=== PATIENT | female | born 1990 | race Caucasian/White ===

== ENCOUNTER 2020-05-13 13:22 | Emergency (ER) | payer OTHER, SELFPAY ==
--- NOTE | ~2020-05-13 | XR_ITS ---
XR chest 2V DATE: 05/13/2020 13:57 INDICATION: Cough for 2 weeks TECHNIQUE: PA and lateral views COMPARISON: 09/22/2004 PA and lateral chest FINDINGS: Normal heart size. No hilar or mediastinal enlargement. No pulmonary infiltrate or consolid ation, pleural effusion or pulmonary vascular congestion or pneumothorax. IMPRESSION: No active cardiopulmonary disease Reviewed, dictated and finalized at location A.
[2020-05-13 13:33] VITALS: BP 117/67; PULSE 67; RESP 20; TEMP 36.6; O2SAT 98
--- NOTE | 2020-05-13 13:42 | ED.GENADULT ---
HPI - General Adult General Chief complaint: Upper Respiratory Infection Stated complaint: cough/mucus/mustafa/sinus issues Time Seen by Provider: 05/13/20 13:42 Source: patient and RN notes reviewed Mode of arrival: ambulatory Limitations: no limitations History of Present Illness HPI narrative: 30-year-old female presents with complains of dry cough, sore throat, and intermittent headache (not the worst of her life) for the past 14 days. Mucinex D and nasal spray without relief. Constant dry cough and intermittent chest congestion. No rhinorrhea. Intermittent nasal congestion. Sore throat. No high fevers, drooling, neck or throat swelling. No chest pain, wheezing, or shortness of breath. No exacerbation factors. LMP 04/20-. Rowena says she tested NEGATIVE for COVID on 05/08/20. The patient reports she have not been diagnosed with COVID-19. The patient reports she is not waiting for the results of a COVID-19 lab test. The patient reports she do not have fever, chills, or weakness. The patient reports she does have a worsening cough. Denies shortness of breath and chest pain. The patient reports she do not have any rhinorrhea, congestion, nausea, vomiting, abdominal pain, and diarrhea. Tolerating po intake well. Denies recent traveling. Denies concerns for COVID-19 or exposures been home with limited outdoor exposure except for essential household needs, work, and return home. At this time, patient is not suspected of having COVID-19. Some parts of this dictation were generated by voice recognition software and may contain typographical and/or grammatical inaccuracies. Related Data Allergies Allergy/AdvReac Type Severity Reaction Status Date / Time amoxicillin Allergy Unknown Rash Verified 02/13/20 14:00 azithromycin Allergy Unknown syncope Verified 02/13/20 14:00 Penicillins Allergy Unknown Skin Verified 02/13/20 14:00 Reaction Sulfa (Sulfonamide Allergy Unknown Skin Verified 02/13/20 14:00 Antibiotics) Reaction Review of Systems Review of Systems: Narrative: CONSTITUTIONAL: Denies fever, chills, sweats. EYES: Denies visual changes, redness, discharge. ENT: Denies rhinorrhea, otalgia. Complains of congestion, sore throat. CARDIOVASCULAR: Denies chest pain, palpitations, edema. RESPIRATORY: Denies dyspnea, wheezing. Complains of dry cough. GASTROINTESTINAL: Denies abdominal pain, nausea, vomiting, diarrhea. GENITOURINARY: Denies dysuria, hematuria, abnormal discharge. SKIN: Denies rash or itching. MUSCULOSKELETAL: Denies acute back pain. Complains of body aches. NEUROLOGIC: Denies numbness or focal weakness. Complains of intermittent headache. PSYCHIATRIC: Denies anxiety or depression. All systems reviewed & are unremarkable except as noted in HPI and below. [facility] Past Medical History Medical History (Updated 05/14/20 @ 00:00 by Severiano Haro) Anxiety Depression Surgical History Surgical History (Updated 05/13/20 @ 13:53 by CHU Garrett) No significant past surgical history Family History Family History Grandparent Diabetes mellitus Grandparent Pancreatic cancer Grandparent Breast cancer Mother Age: 55 Anxiety Social History Social History (Updated 05/13/20 @ 13:53 by CHU Garrett) Smoking status: Never smoker Tobacco type: cigarettes Second hand tobacco smoke exposure: No Alcohol intake: current Substance use: never Living arrangements: with family Occupation/Education: occupation Gender identity (if verbalized by the patient): Female Sexual Orientation (if Verbalized by the Patient): Straight or Heterosexual Comments At time of signature, agree with nurse past medical, surgical, social, and family history. There is no relevant family history pertinent to the presenting complaint. Exam Narrative: Exam Narrative: GENERAL: This is a well-nourished, well-developed pa
== END 2020-05-13 14:23 | disposition home or self-care (01) ==
PROVIDERS: Emergency Provider Nurse Practitioner Family; PCP Family Medicine
DX: J40 Bronchitis, not specified as acute or chronic (principal); F41.9 Anxiety disorder, unspecified; F32.9 Major depressive disorder, single episode, unspecified
CPT/HCPCS: 71046; 99213; G0463

== ENCOUNTER 2020-11-02 08:04 | Emergency (ER) | payer OTHER, SELFPAY ==
--- NOTE | ~2020-11-02 | US_ITS ---
EXAMINATION: US pelvic complete w TV DATE: 11/02/2020 10:44 INDICATION: Severe right pelvic pain radiating to the vagina TECHNIQUE: Multiple transabdominal and endovaginal sonographic images of the pelvis were obtained. COMPARISON: None. FINDINGS: The uterus measures 8.8 x 5.9 x 5.0 cm. The endometrial complex measures 5 mm in thickness. The righ t ovary measures 3.7 x 2.0 x 2.2 cm. The left ovary measures 3.0 x 2.8 x 1.[address] anechoic follicles in both ovaries. Vascular flow identified in both ovaries on color Doppler. In the right ovary there is a large 1.4 cm diameter isoechoic, centrally hypoechoic lesion with surroun ding vascular flow on color Doppler suggestive of a corpus luteum cyst. Very small amount of anechoic likely physiologic free fluid in the cul-de-sac.. IMPRESSION: 1. 1.4 cm isoechoic centrally hypoechoic lesion in the right ovary with surrounding vascular flow on color Doppler suggesting a corpus luteum cyst in very small amount of likely physiologic free fluid i n the cul-de-sac. Otherwise unremarkable pelvic ultrasound. Reviewed, dictated and finalized at location A. [facility]UL[facility] DISPATCHER IMPRESSION: 1. 1.4 cm isoechoic centrally hypoechoic lesion in the right ovary with surroun ding vascular flow on color Doppler suggesting a corpus luteum cyst in very sma ll amount of likely physiologic free fluid in the cul-de-sac. Otherwise unremar kable pelvic ultrasound.
[2020-11-02 08:00] VITALS: BP 93/58; PULSE 57; RESP 18; TEMP 36.4; O2SAT 100
[2020-11-02 08:41] LABS: Add Urine Microscopic? YES; Appearance Urine Turbid (Clear); Bilirubin Urine Negative (Negative); Blood Urine 3+ (Negative); Color Urine Yellow (Yellow); Glucose Urine UA Negative (Negative); Ketones Urine Negative (Negative); Leukocyte Esterase Ur 1+ LEU/UL (Negative); Mucus Urine Moderate /lpf; Nitrate Urine Negative (Negative); Protein Urine 3+ mg/dL (Negative); RBC Urine >75 /hpf (0-2); Specific Grav Ur 1.025 (1.001-1.035); Squamous Epithelial Cell Urine Few /hpf (Few); Urobilinogen Urine Negative mg/dL (<2.0); WBC Urine >75 /hpf
[2020-11-02 08:54] LABS: Basophils Percent Auto 0.4 % (0.2-1.2); Eosinophils Absolute Auto 0.1 K/mm3 (0-0.3); Eosinophils Percent Auto 1.2 % (0-4.4); Hematocrit 41.8 % (37.0-47.0); Hemoglobin 13.8 g/dL (12.0-15.0); Immature Granulocyte Absolute 0.03 K/mm3 (0.00-0.031); Immature Granulocyte Percent A 0.3 % (0-0.5); Lymphocytes Absolute Auto 1.42 K/mm3 (0.9-3.2); Lymphocytes Percent Auto 14.1 % (18.3-44.2); Mean Corpuscular Hemoglobin 29.6 pg (26-34); Mean Corpuscular Volume 89.7 fl (80-100); Mean Platelet Volume 10.8 fl (7.4-10.4); Monocytes Absolute Auto 0.8 K/mm3 (0.1-0.6); Monocytes Percent Auto 7.4 % (2.6-8.5); Neutrophils Absolute Auto 7.7 K/mm3 (1.3-6.7); Neutrophils Percent Auto 76.6 % (45.5-73.1); Platelet Count Result 223 k/mm3 (150-375); Red Blood Count 4.66 M/mm3 (4.2-5.4); White Blood Count 10.1 K/mm3 (4.5-10.0)
[2020-11-02 09:09] LABS: Alanine Aminotransferase 15 U/L (4-35); Albumin Level 4.1 g/dL (3.5-5.1); Alkaline Phosphatase 61 U/L (38-126); Anion Gap 3 mmol/L (8-16); Aspartate Amino Transferase 26 U/L (14-36); Bilirubin,Total 0.4 mg/dL (0.2-1.3); Blood Urea Nitrogen 20 mg/dL (7-17); Calcium 8.8 mg/dL (8.4-10.2); Carbon Dioxide 27 mmol/L (22-30); Chloride 105 mmol/L (98-107); Estimated CRCL calculation 72 ml/min; Estimated Glomerular Filt Rate > 60; Glucose 98 mg/dL (65-105); Lipase 192 U/L (23-300); Sodium 135 mmol/L (137-145)
[2020-11-02 09:39] VITALS: BP 114/66; PULSE 59; RESP 17; O2SAT 99
[2020-11-02] MEDS: LACTATED RINGERS 1,000 ML 999 ML IV CONT (10:42)
[2020-11-02 10:54] VITALS: BP 98/52; PULSE 52; RESP 19; O2SAT 100
[2020-11-02 11:28] VITALS: BP 110/73; PULSE 67; RESP 17; O2SAT 100
--- NOTE | 2020-11-02 12:04 | ED.ABDPAIN ---
HPI - Abdominal Pain General Chief Complaint: Abdominal Pain Stated Complaint: abd pain Time Seen by Provider: 11/02/20 08:37 Source: patient Mode of arrival: EMS Limitations: no limitations History of Present Illness HPI narrative: Patient is a 30 year old female who presents for evaluation of pelvic pain. She started her menstrual cycle yesterday with mild spotting. This morning she reports she started having severe pelvic pain that radiates to vagina. She reports nausea, vomiting and diarrhea. While she was having diarrhea she developed worsening pain. She reports she frequently have IBS symptoms with her period. She tried to take motrin but she started vomiting. She reports feeling faint. She has not fever or chills. She states she called EMS because she needed pain relief. EMS gave her morphine and zofran , so her symptoms have resolved. She denies nausea. She request an ultrasound to look for a cyst. Related Data Allergies Allergy/AdvReac Type Severity Reaction Status Date / Time amoxicillin Allergy Unknown Rash Verified 11/02/20 08:08 azithromycin Allergy Unknown syncope Verified 11/02/20 08:08 Penicillins Allergy Unknown Skin Verified 11/02/20 08:08 Reaction Sulfa (Sulfonamide Allergy Unknown Skin Verified 11/02/20 08:08 Antibiotics) Reaction Review of Systems Review of Systems: All systems reviewed & are unremarkable except as noted in HPI and below PMFSH Past Medical History Medical History (Updated 11/02/20 @ 13:00 by Marlee Abdalla MD) Anxiety Depression Surgical History Surgical History (Updated 05/13/20 @ 13:53 by CHU Garrett) No significant past surgical history Family History Family History Grandparent Diabetes mellitus Grandparent Pancreatic cancer Grandparent Breast cancer Mother Age: 56 Anxiety Social History Social History (Updated 05/13/20 @ 13:53 by CHU Garrett) Smoking status: Never smoker Tobacco type: cigarettes Second hand tobacco smoke exposure: No Alcohol intake: current Substance use: never Gender identity (if verbalized by the patient): Female Exam Const: General: healthy appearing, no acute distress and alert Orientation/consciousness: patient oriented x3 HENMT: Head: normocephalic and atraumatic Face and sinus: face symmetric Mouth: Yes Normal oral and palatal mucosa present, Yes lip normal, Yes oropharynx normal and Yes moist mucous membranes Eyes: EOM: EOMs intact bilaterally Resp: Effort & Inspection: normal respiratory effort Auscultation: clear to auscultation bilaterally Cardio: Rate: regular rate Rhythm: regular rhythm Heart sounds: no murmurs GI: GI Palp: Yes Soft to palpation, No Tenderness to palpation present (GI), No Guarding due to palpation present (GI) and No Rigid due to palpation Auscultation: normal bowel sounds Skin: General skin exam: normal color Rashes: no rashes Neuro: General: patient oriented x3 and moves all extremities Course Reevaluation(s) Reevaluation #1: Patient reports she feels better. She has no abdominal tenderness. This appears to be unlikely appendicitis with no abdominal tenderness , no fever, no leukocytosis. Date: 11/02/20 Time: 12:48 Vital Signs Vital signs: Vital Signs Temperature 97.6 F 11/02/20 08:00 Pulse Rate 57 L 11/02/20 08:00 Respiratory Rate 18 11/02/20 08:00 Blood Pressure 93/58 L 11/02/20 08:00 Pulse Oximetry 100 11/02/20 08:00 Temperature 97.6 F 11/02/20 08:00 Pulse Rate 64 11/02/20 12:25 Respiratory Rate 18 11/02/20 12:25 Blood Pressure 103/66 11/02/20 12:25 Pulse Oximetry 97 11/02/20 12:25 MDM - Abdominal Pain Lab Data Attestation: I reviewed the patient's lab results. Result diagrams: 11/02/20 08:43 11/02/20 08:43 Labs: Lab Results 11/02/20 11/02/20 11/02/20 Range/Units 08:25 08:43 08:43 WBC 10.1
[2020-11-02 12:25] VITALS: BP 103/66; PULSE 64; RESP 18; O2SAT 97
== END 2020-11-02 13:12 | disposition home or self-care (01) ==
PROVIDERS: Emergency Provider General Practice; PCP Family Medicine
DX: R11.2 Nausea with vomiting, unspecified (principal); N92.0 Excessive and frequent menstruation with regular cycle; N83.11 Corpus luteum cyst of right ovary
CPT/HCPCS: 36415; 76830; 76856; 80053; 81001; 81025; 83690; 85025; 87086; 87088; 96360; 99284; J7120

== ENCOUNTER 2021-05-19 10:29 | Emergency (ER) | payer BC, OTHER, SELFPAY ==
--- NOTE | 2021-05-19 10:32 | ED.URI ---
HPI - URI/Sore Throat General Chief Complaint: Upper Respiratory Infection Stated Complaint: cough/runny nose/sore throat/ear pain/mustafa/congestio Time Seen by Provider: 05/19/21 10:45 Source: patient and RN notes reviewed Mode of arrival: ambulatory Limitations: no limitations History of Present Illness HPI Narrative: 31-year-old male presents with concern for 4-day history of cough, nasal congestion, nasal drainage, headache, ear pain. Reports she was tested for Covid on Tuesday, when she had had 1 day of symptoms. Reports the rapid test was negative. Reports she had a negative PCR through her work on Tuesday as well. Reports she has been taking Delsym, albuterol, Mucinex with little relief. Reports cough keeps her awake at night. She denies fever, chills, sweats. Reports body aches. She denies any known sick exposure. Reports she has been using her albuterol inhaler every 4 hours, she last used it this morning. She denies shortness of breath, nausea, vomiting, diarrhea. MD elicited complaint: cough Related Data Allergies Allergy/AdvReac Type Severity Reaction Status Date / Time amoxicillin Allergy Unknown Rash Verified 11/02/20 08:08 azithromycin Allergy Unknown syncope Verified 11/02/20 08:08 Penicillins Allergy Unknown Skin Verified 11/02/20 08:08 Reaction Sulfa (Sulfonamide Allergy Unknown Skin Verified 11/02/20 08:08 Antibiotics) Reaction Review of Systems Review of Systems: CONSTITUTIONAL: Reports malaise. Denies chills, sweats, or fever. EYES: Denies visual changes, redness, or discharge. ENT: Reports rhinorrhea, congestion, sinus pain, otalgia. Denies sore throat. CARDIOVASCULAR: Denies chest pain, palpitations, or edema. RESPIRATORY: Reports cough, wheezing. Denies dyspnea. GASTROINTESTINAL: Denies abdominal pain, nausea, vomiting, diarrhea SKIN: Denies rash or itching. MUSCULOSKELETAL: Reports myalgia. NEUROLOGIC: Reports headache. All systems reviewed & are unremarkable except as noted in HPI and below PMFSH Past Medical History Medical History (Updated 05/19/21 @ 10:51 by Abril Eugene NP) Anxiety Depression Surgical History Surgical History (Updated 05/13/20 @ 13:53 by CHU Garrett) No significant past surgical history Family History Family History Grandparent Diabetes mellitus Grandparent Pancreatic cancer Grandparent Breast cancer Mother Age: 56 Anxiety Social History Social History (Updated 05/13/20 @ 13:53 by CHU Garrett) Smoking status: Never smoker Tobacco type: cigarettes Second hand tobacco smoke exposure: No Alcohol intake: current Substance use: never Gender identity (if verbalized by the patient): Female Comments At time of signature, agree with nursing past medical, surgical, social and family history. There is no relevant family history pertinent to the presenting complaint Exam Narrative: GENERAL: Well-appearing, well-nourished, and in no acute distress. HEAD: Normocephalic EYES: PERRLA, conjunctivae clear ENT: Nares clear, turbinates edematous and erythematous, clear discharge. Mucous membranes moist. TM pearly perry with sharp light reflex bilaterally; no tragal tenderness. Oropharynx not erythematous without lesions. Tonsils not enlarged and without exudate, no drooling, no hoarseness, no trismus, uvula midline. NECK: Supple. No lymphadenopathy CHEST: Clear to auscultation, breath sounds equal. No wheezing, rhonchi, rales, or stridor. No respiratory distress, speaks in full sentences. Cough noted HEART: Regular rate and rhythm. No murmur heard. SKIN: Warm, dry, no rash. NEURO: Alert and oriented x3. PSYCH: Normal mood and affect Course Course Emergency Course: Patient is aware of diagnosis, understands and agrees to treatment plan. Anticipatory guidance given. Patient agrees to follow-up as directed and is aware of reasons to seek care at the emergency department
[2021-05-19 10:37] VITALS: BP 110/76; PULSE 81; RESP 12; TEMP 36.6; O2SAT 99
== END 2021-05-19 11:02 | disposition home or self-care (01) ==
PROVIDERS: Emergency Provider Nurse Practitioner; PCP Family Medicine
DX: J06.9 Acute upper respiratory infection, unspecified (principal)
CPT/HCPCS: 99213; G0463

== ENCOUNTER 2022-07-20 09:28 | Outpatient (CLI) | payer BC, SELFPAY ==
[2022-07-20 19:59] LABS: Basophils Absolute Auto 0.1 K/mm3 (0.0-0.1); Basophils Percent Auto 1.2 % (0.2-1.2); Eosinophils Absolute Auto 0.2 K/mm3 (0-0.3); Eosinophils Percent Auto 2.2 % (0-4.4); Hematocrit 44.5 % (37.0-47.0); Hemoglobin 14.2 g/dL (12.0-15.0); Immature Granulocyte Absolute 0.02 K/mm3 (0.00-0.031); Immature Granulocyte Percent A 0.3 % (0-0.5); Lymphocytes Absolute Auto 1.75 K/mm3 (0.9-3.2); Lymphocytes Percent Auto 25.4 % (18.3-44.2); Mean Corpuscular HGB Conc 31.9 g/dl (32-36); Mean Corpuscular Hemoglobin 29.8 pg (26-34); Mean Corpuscular Volume 93.5 fl (80-100); Mean Platelet Volume 11.1 fl (7.4-10.4); Monocytes Absolute Auto 0.6 K/mm3 (0.1-0.6); Monocytes Percent Auto 8.8 % (2.6-8.5); Neutrophils Absolute Auto 4.3 K/mm3 (1.3-6.7); Neutrophils Percent Auto 62.1 % (45.5-73.1); Platelet Count Result 265 k/mm3 (150-375); Red Blood Count 4.76 M/mm3 (4.2-5.4); Red Cell Distribution Width 12.1 % (11.5-14.5); White Blood Count 6.9 K/mm3 (4.5-10.0)
[2022-07-20 20:27] LABS: Alanine Aminotransferase 18 U/L (6-35); Albumin Level 4.6 g/dL (3.5-5.1); Alkaline Phosphatase 64 U/L (38-126); Anion Gap 13 mmol/L (8-16); Aspartate Amino Transferase 23 U/L (14-36); Bilirubin,Total 0.5 mg/dL (0.2-1.3); Blood Urea Nitrogen 16 mg/dL (7-17); Calcium 9.1 mg/dL (8.4-10.2); Carbon Dioxide 22 mmol/L (22-30); Chloride 105 mmol/L (98-107); Estimated Glomerular Filt Rate > 60; Glucose 79 mg/dL (65-110); Potassium 3.9 mmol/L (3.4-5.0); Sodium 140 mmol/L (137-145)
== END 2022-07-20 09:29 | disposition home or self-care (01) ==
LOC: ANHGOSHLAB 09:30
PROVIDERS: PCP Family Medicine; Visit Provider Physician Assistant
DX: R55 Syncope and collapse (principal); R00.2 Palpitations
CPT/HCPCS: 36415; 80053; 84443; 85025

== ENCOUNTER 2022-09-19 16:04 | Emergency (ER) | payer BC, SELFPAY ==
[2022-09-19 16:12] VITALS: BP 123/78; PULSE 80; RESP 16; TEMP 36.4; O2SAT 100
--- NOTE | 2022-09-19 16:42 | ED.URI ---
HPI - URI/Sore Throat General Chief Complaint: Upper Respiratory Infection Stated Complaint: SORE THROAT/NAUSEA/VOMITING/DIARRHEA Time Seen by Provider: 09/19/22 16:15 Source: patient Mode of arrival: ambulatory Limitations: no limitations History of Present Illness HPI Narrative: Rowena is a 32-year-old female patient presenting to the clinic today with complaints sore throat, nausea, vomiting, diarrhea, cough, and nasal congestion x 3 days. She denies any known fever or chills. She reports that her daughter was positive for strep last week. MD elicited complaint: sore throat and nasal congestion Related Data Home Medications Medication Instructions Recorded Confirmed sertraline 50 mg tablet mg 09/19/22 Allergies Allergy/AdvReac Type Severity Reaction Status Date / Time amoxicillin Allergy Unknown Rash Verified 09/19/22 16:11 azithromycin Allergy Unknown syncope Verified 09/19/22 16:11 Penicillins Allergy Unknown Skin Verified 09/19/22 16:11 Reaction Sulfa (Sulfonamide Allergy Unknown Skin Verified 09/19/22 16:11 Antibiotics) Reaction doxycycline AdvReac Mild Nausea Uncoded 09/19/22 16:11 Review of Systems Review of Systems: Pertinent positives per HPI. Patient denies any fever, chills, rash, headache, visual changes, dizziness, shortness of breath, chest pain, palpitations, nausea, vomiting, diarrhea, constipation, abdominal pain, or any urinary issues. [facility] Past Medical History Medical History Anxiety Depression Surgical History Surgical History No significant past surgical history Family History Family History Grandparent Diabetes mellitus Grandparent Pancreatic cancer Grandparent Breast cancer Mother Age: 58 Anxiety Social History Social History Smoking status: Never smoker Tobacco type: cigarettes Second hand tobacco smoke exposure: No Alcohol intake: current Substance use: never Gender identity (if verbalized by the patient): Female Sexual Orientation (if Verbalized by the Patient): Straight or Heterosexual Comments At the time of my signature, I reviewed and agree with the nursing past medical, surgical, social, and family history. There is no relevant family history pertinent to the patient complaint. Exam Narrative: General: Well-developed, well nourished, in no apparent distress Head: Normocephalic, atraumatic Eyes: Pupils equally round and reactive to light bilaterally, EOM intact, sclera and conjunctive clear, no discharge, lids normal Ears: TMs intact and clear, ear canals clear, no drainage, grossly hearing normal. Nose: Nares patent, no discharge, no inflammation, no sinus tenderness. Mouth: Oral pharynx without lesions or masses, good dentition, MMM. Oropharynx red with mild tonsillar enlargement Neck: Supple, trachea midline, mild enlargement of anterior cervical nodes, no thyroid masses or goiter palpable. Cardio: Regular rate and rhythm, s1 and s2 normal, no murmur appreciated. Resp: Clear to auscultation bilaterally, no rhonchi, rales, wheezing or rubs Course Course Emergency Course: Portions of this record may have been created with voice recognition software. Level of Care: Express Care Visit Vital Signs Vital signs: Vital Signs Temperature 36.4 C L 09/19/22 16:12 Pulse Rate 80 09/19/22 16:12 Respiratory Rate 16 09/19/22 16:12 Blood Pressure 123/78 09/19/22 16:12 Pulse Oximetry 100 09/19/22 16:12 Temperature 36.4 C L 09/19/22 16:12 Pulse Rate 80 09/19/22 16:12 Respiratory Rate 16 09/19/22 16:12 Blood Pressure 123/78 09/19/22 16:12 Pulse Oximetry 100 09/19/22 16:12 Vital signs reviewed MDM - URI/Sore Throat MDM Narrative Medical decision santa
== END 2022-09-19 16:55 | disposition home or self-care (01) ==
PROVIDERS: Emergency Provider Nurse Practitioner Family; PCP Family Medicine
DX: J06.9 Acute upper respiratory infection, unspecified (principal); J02.9 Acute pharyngitis, unspecified; B34.9 Viral infection, unspecified; Z20.822 Contact with and (suspected) exposure to COVID-19; F41.9 Anxiety disorder, unspecified; F32.A Depression, unspecified
CPT/HCPCS: 87081; 87426; 87804; 99213; C9803; G0463

== ENCOUNTER 2022-11-21 09:32 | Emergency (ER) | payer BC, SELFPAY ==
[2022-11-21 10:13] VITALS: BP 113/68; PULSE 86; RESP 15; TEMP 36.7; O2SAT 100
[2022-11-21 11:18] VITALS: BP 136/89; PULSE 100; RESP 15; O2SAT 100
[2022-11-21 11:31] VITALS: BP 119/82; PULSE 79; RESP 16; O2SAT 98
--- NOTE | 2022-11-21 11:50 | ED.HA ---
HPI - Headache General Chief Complaint: Headache Stated Complaint: headache, N/V Time Seen by Provider: 11/21/22 11:34 History of Present Illness HPI Narrative: Patient is a 32-year-old female who presents ER with headache. Reports has been feeling fatigued for the last 2 days. This morning she started having mild headache and then it intensified. Posterior neck. This is high as 10/10 and 7/10 improved since coming to the ER. Unsure if she has photophobia. Denies fevers or chills. She did have some sweats earlier with the pain. She has a [id number] who was recently hospitalized for adenovirus. Denies productive cough chest pain. No urinary frequency urgency or dysuria. Related Data Home Medications Medication Instructions Recorded Confirmed sertraline 50 mg tablet 50 mg PO DAILY 09/19/22 10/11/22 Allergies Allergy/AdvReac Type Severity Reaction Status Date / Time amoxicillin Allergy Unknown Rash Verified 11/21/22 11:19 azithromycin Allergy Unknown syncope Verified 11/21/22 11:19 Penicillins Allergy Unknown Skin Verified 11/21/22 11:19 Reaction Sulfa (Sulfonamide Allergy Unknown Skin Verified 11/21/22 11:19 Antibiotics) Reaction doxycycline AdvReac Mild Nausea Uncoded 11/21/22 11:19 Review of Systems Review of Systems: All systems reviewed & are unremarkable except as noted in HPI and below Constitutional: Constitutional: Denies chills, Reports fatigue and Denies fever(s) ENT: Denies nasal congestion and Denies sore throat Respiratory: Respiratory: Denies cough and Denies dyspnea Neurologic: Denies syncope, Reports headache(s), Denies focal weakness and Denies numbness PMFSH Past Medical History Medical History (Updated 11/21/22 @ 13:17 by Axel Valdivia MD) Anxiety Depression Surgical History Surgical History No significant past surgical history Family History Family History Grandparent Diabetes mellitus Grandparent Pancreatic cancer Grandparent Breast cancer Mother Age: 58 Anxiety Social History Social History Smoking status: Never smoker Tobacco type: cigarettes Second hand tobacco smoke exposure: No Alcohol intake: current Substance use: never Living arrangements: with family Occupation/Education: occupation Gender identity (if verbalized by the patient): Female Sexual Orientation (if Verbalized by the Patient): Straight or Heterosexual Exam Narrative: GENERAL: Well-appearing, well-nourished, and in no acute distress. HEAD: Normocephalic, atraumatic. ENT: Mucous membranes moist. NECK: Supple. Full range of motion without meningismus. CHEST: Clear to auscultation. No respiratory distress. HEART: Regular rate and rhythm. Normal peripheral pulses. ABDOMEN: Soft, nontender, nondistended. EXTREMITIES: Normal range of motion. No edema. NEURO: Alert and oriented x3. PSYCH: Normal mood and affect. Course Course Emergency Course: Patient's headache resolved with Reglan/Benadryl/Toradol. She has been hydrated. Discharge home. Vital Signs Vital signs: Vital Signs Temperature 98.0 F 11/21/22 10:13 Pulse Rate 86 11/21/22 10:13 Respiratory Rate 15 11/21/22 10:13 Blood Pressure 113/68 11/21/22 10:13 Pulse Oximetry 100 11/21/22 10:13 Oxygen Delivery Room Air 11/21/22 10:13 Temperature 98.0 F 11/21/22 10:13 Pulse Rate 79 11/21/22 11:31 Respiratory Rate 16 11/21/22 11:31 Blood Pressure 119/82 11/21/22 11:31 Pulse Oximetry 98 11/21/22 11:31 Oxygen Delivery Room Air 11/21/22 10:13 MDM - Headache Lab Data 11/21/22 11:56 11/21/22 11:56 Labs: Lab Results 11/21/22 11/21/22 11/21/22 Range/Units 11:56 11:56 11:56 WBC 8.9 (4.5-10.0) K/mm3 RBC 4.68 (4.2-5.4) M/mm3 Hgb 13.9 (12.0-15.0)
[2022-11-21 12:00] LABS: Basophils Absolute Auto 0.1 K/mm3 (0.0-0.1); Basophils Percent Auto 0.7 % (0.2-1.2); Eosinophils Percent Auto 0.2 % (0-4.4); Hematocrit 42.3 % (37.0-47.0); Hemoglobin 13.9 g/dL (12.0-15.0); Immature Granulocyte Absolute 0.03 K/mm3 (0.00-0.031); Immature Granulocyte Percent A 0.3 % (0-0.5); Lymphocytes Absolute Auto 0.92 K/mm3 (0.9-3.2); Lymphocytes Percent Auto 10.3 % (18.3-44.2); Mean Corpuscular HGB Conc 32.9 g/dl (32-36); Mean Corpuscular Hemoglobin 29.7 pg (26-34); Mean Corpuscular Volume 90.4 fl (80-100); Mean Platelet Volume 10.8 fl (7.4-10.4); Monocytes Absolute Auto 0.5 K/mm3 (0.1-0.6); Monocytes Percent Auto 5.6 % (2.6-8.5); Neutrophils Absolute Auto 7.4 K/mm3 (1.3-6.7); Neutrophils Percent Auto 82.9 % (45.5-73.1); Platelet Count Result 244 k/mm3 (150-375); Red Blood Count 4.68 M/mm3 (4.2-5.4); White Blood Count 8.9 K/mm3 (4.5-10.0)
[2022-11-21 12:10] LABS: Anion Gap 4 mmol/L (8-16); Blood Urea Nitrogen 13 mg/dL (7-17); Calcium 8.8 mg/dL (8.4-10.2); Carbon Dioxide 29 mmol/L (22-30); Chloride 105 mmol/L (98-107); Estimated CRCL calculation 87 ml/min; Estimated Glomerular Filt Rate > 60; Glucose 113 mg/dL (65-110); Potassium 4.1 mmol/L (3.4-5.0); Sodium 138 mmol/L (137-145)
[2022-11-21] MEDS: SODIUM CHLORIDE 0.9% IV 1,000 ML 999 ML IV CONT (12:30)
[2022-11-21] MEDS: diphenhydrAMINE HCl INJ 50 MG/ML VIAL 25 MG IV PUSH (12:30)
[2022-11-21] MEDS: METOCLOPRAMIDE HCL INJ 10 MG/2 ML VIAL IV PUSH (12:31)
[2022-11-21] MEDS: KETOROLAC 30 MG/ML VIAL (*BKC) IV PUSH (12:31)
[2022-11-21 12:36] LABS: Influenza A QL RT-PCR Negative (Negative); Influenza B QL RT-PCR Negative (Negative); SARS-CoV-2 RNA PCR Negative
[2022-11-21 13:29] VITALS: BP 96/52; PULSE 80; RESP 16; O2SAT 98
== END 2022-11-21 13:30 | disposition home or self-care (01) ==
PROVIDERS: Emergency Provider Emergency Medicine; PCP Family Medicine
DX: R51.9 Headache, unspecified (principal); Z20.822 Contact with and (suspected) exposure to COVID-19; F41.9 Anxiety disorder, unspecified; F32.A Depression, unspecified
CPT/HCPCS: 36415; 80048; 85025; 87636; 96361; 96374; 96375; 99284; J1200; J1885; J2765; J7030

== ENCOUNTER 2024-04-27 18:06 | Emergency (ER) | payer BC, SELFPAY ==
[2024-04-27 18:42] VITALS: BP 123/74; PULSE 70; RESP 16; TEMP 36.6; O2SAT 100
--- NOTE | 2024-04-27 18:59 | ED.SKABFB ---
HPI - Skin/Abscess/Foreign Bdy General Chief complaint: Skin/Abscess/Foreign Body Stated complaint: Bacterial Infection in Nose Time Seen by Provider: 04/27/24 18:59 Source: patient, RN notes reviewed and old records reviewed Mode of arrival: ambulatory Limitations: no limitations History of Present Illness HPI narrative: Patient presents with complaints of crusty sores to bilateral nostrils for approximately 4 days. She reports honey-colored crust. Denies any injury or trauma Related Data Allergies Allergy/AdvReac Type Severity Reaction Status Date / Time azithromycin AdvReac Intermediate syncope Verified 04/27/24 18:42 amoxicillin AdvReac Mild Rash Verified 04/27/24 18:42 Penicillins AdvReac Mild Skin Verified 04/27/24 18:42 Reaction Sulfa (Sulfonamide AdvReac Mild Skin Verified 04/27/24 18:42 Antibiotics) Reaction doxycycline AdvReac Intermediate Nausea and Uncoded 04/27/24 18:42 Vomiting Review of Systems Review of Systems: All systems reviewed & are unremarkable except as noted in HPI and below Constitutional: Constitutional: Reports no additional constitutional complaints ENT: Reports system reviewed and no additional complaints, except as documented Cardiovascular: Cardiovascular: Reports no additional cardiovascular complaints Respiratory: Respiratory: Reports no additional respiratory complaints Gastrointestinal: Gastrointestinal: Reports no additional gastrointestinal complaints Integumentary/Breasts: Skin/Breast: Reports system reviewed and no additional complaints, except as docu and Reports as per [facility]PI [facility] Past Medical History Medical History Anxiety Depression Surgical History Surgical History No significant past surgical history Family History Family History Grandparent Diabetes mellitus Grandparent Pancreatic cancer Grandparent Breast cancer Mother Age: 59 Anxiety Social History Social History Smoking status: Never smoker Tobacco type: cigarettes Second hand tobacco smoke exposure: No Alcohol intake: current Substance use: never Lack of Transportation: No Lack of Food: Never True Current Housing: I Have Housing Concerned About Future Housing: No Difficulty Paying Gas/Electric Bills: No Difficulty Paying for Meds: No Currently Unemployed: No Education: Master's Degree or Higher Difficulty w/ Childcare or Family Care: No Living arrangements: with family Occupation/Education: occupation Gender identity (if verbalized by the patient): Female Sexual Orientation (if Verbalized by the Patient): Straight or Heterosexual Comments At the time of my signature, I reviewed and agree with the nursing past medical, surgical, social, and family history. There is no relevant family history pertinent to the patient complaint. Exam Const: General: cooperative, no acute distress, alert and awake Orientation/consciousness: oriented to person, oriented to place and oriented to time HENMT: Head: normal to inspection Resp: Effort & Inspection: normal respiratory effort and able to speak in complete sentences Auscultation: clear to auscultation bilaterally, no crackles, no rales, no rhonchi and no wheezes Cardio: Palpation: normal PMI Rate: regular rate Rhythm: regular rhythm Heart sounds: S1 normal heart sound present and S2 normal heart sound present Skin: Lesions: lesion noted (Honey crusted lesions noted surrounding both nostrils, spreading outward) Neuro: General: oriented to person, oriented to place and oriented to time Cranial nerves: Yes CN's II-XII intact bilaterally Psych: Appearance: grossly normal Thought process: Normal thought process present Insight: Good insight present (Psych) Judgement: Good judgement pr
== END 2024-04-27 19:09 | disposition home or self-care (01) ==
PROVIDERS: Emergency Provider Nurse Practitioner Family; PCP Family Medicine
DX: L01.00 Impetigo, unspecified (principal); F41.9 Anxiety disorder, unspecified; F32.A Depression, unspecified
CPT/HCPCS: 99213; G0463

== ENCOUNTER 2025-01-02 08:01 | Outpatient (CLI) | payer BC, SELFPAY ==
--- OUTSIDE RECORDS SUMMARY | 2025-01-02 08:07 | XMS_ITS ---
Author Organization [facility] [employer] [facility] Address [facility] 162 [facility] [address] [place] [address] Care Team Providers Care Optical Designer Name Role Phone Aydin Lieberman Unavailable [phone] Anastacia Archer Unavailable [phone] Social History Sex Assigned At : Social History Observation Description Sex Assigned At Female Encounters Encounter Location Date Provider Diagnosis [facility] [employer] [place] [id number] [facility] 162 [facility] [address] [place] [address] 07/26/2024 Anastacia Eddy Plan Of Treatment No Information Progress Notes * BABATUNDE KEEN KDOB: 2 (34 yo F)Acc No.[id number]:07/26/2024 Patient: BABATUNDE KHAN Provider: Cynthia EDDY LCSW :1990 A ge:34 Y S ex:Female Date:07/26/2024 Address:[address] [facility] Data: * Chief Complaints: * Assessment: Plan: * Treatment: * Procedure Codes: N STHR NO SHOW THERAPY * Billing Information: * Visit Code: * Procedure Codes: NSTHR NO SHOW THERAPY. * Electronic signature of Ellen dEdy LCSW on 01/02/2025 at 08:07 AM CDT Sign off status: Pending Signatures: No Ad Hoc Signature Added * Provider: Cynthia EDDY LCSW Date: 1 Generated for Printi ng/Faxing/eTransmitting on: 0 01/02/2025 08:07 AM CDT
--- OUTSIDE RECORDS SUMMARY | 2025-01-02 08:07 | XMS_ITS ---
Author Organization [facility] [employer] [facility] Address [facility] 162 [facility] [address] [place] [address] Care Team Providers Care Gas Furnace Installer Name Role Phone Aydin Lieberman Unavailable [phone] Anastacia Archer Unavailable [phone] Social History Sex Assigned At : Social History Observation Description Sex Assigned At Female Encounters Encounter Location Date Provider Diagnosis [facility] [employer] [place] [address] [facility] 162 [facility] [address] [place] [address] 08/24/2024 Anastacia Eddy Plan Of Treatment No Information Progress Notes * BABATUNDE KEEN KDOB: 2 (34 yo F)Acc No.[id number]:08/24/2024 Patient: BABATUNDE KAHN Provider: Cynthia EDDY LCSW :1990 A ge:34 Y S ex:Female Date:08/24/2024 Address:[address] [facility] Data: * Chief Complaints: * Assessment: Plan: * Treatment: * Procedure Codes: N STHR NO SHOW THERAPY * Billing Information: * Visit Code: * Procedure Codes: NSTHR NO SHOW THERAPY. * Electronic signature of Ellen Eddy LCSW on 01/02/2025 at 08:07 AM CDT Sign off status: Pending Signatures: No Ad Hoc Signature Added * Provider: Cynthia EDDY LCSW Date: 1 10/24/2023 Generated for Printi ng/Faxing/eTransmitting on: 0 01/02/2025 08:07 AM CDT
--- OUTSIDE RECORDS SUMMARY | 2025-01-02 08:07 | XMS_ITS | Clinical Summary ---
Author Organization [employer] [address] [employer] [address] [place] [address] Phone Care Team Providers Care Svp Programmatic Tv Name Role Phone Unavailable Primary Care Provider Unavailabl e Allergies Active Allergy Reactions Criticality Noted Date Comments Amoxicillin Rash Medium 04/18/2018 Penicillins Hives High 02/24/2021 Sulfa (Sulfonamide Antibiotics) Rash Medium 04/02 Medications escitalopram oxalate (LEXAPRO) 20 mg tablet Take 20 mg by mouth daily. 09/09/2020 Active sertraline (ZOLOFT) 50 mg tablet Take 1 Tablet (50 mg) by mouth daily. 90 Tablet 3 07/07/2022 Active Active Problems No known active problems Family History Medical History Relation Name Comments Diabetes Paternal Uncle Relation Name Status Comments Paternal Uncle Other Diabetes Social History Tobacco Use Types Packs/Day Years Used Date Smoking Tobacco: Never Smokeless Tobacco: Never Tobacco Cessation:Counseling Given: Not Answered Alcohol Use Standard Drinks/Week Comments Yes 0 (1 standard drink = 0.6 oz pur e alcohol) rare Comments No Sex and Gender Information Value Date Recorded Sex Assigned at Not on file Legal Sex Female 2:32 PM UPPER CUTTER OUT Gender Identity Not on file Sexual Orientation Not on file Last Filed Vital Signs Vital Sign Reading Time Taken Comments Blood Pressure 110/78 07/30/2022 2:44 PM CDT Pulse - - Temperature - - Respiratory Rate - - Oxygen Saturation - - Inhaled Oxygen Concentration - - Weight 77.1 kg (170 lb) 07/30/2022 2:44 PM CDT Height 157.5 cm (5' 2 ) 07/07/2022 1:29 PM CDT Body Mass Index 31.09 07/07/2022 1:29 PM CDT Plan of Treatment Health Maintenance Due Date Last Done Comments DTAP/TDAP/TD VACCINES (1 - Tdap) 2011 HEPATITIS B VACCINES (1 of 3 - 19+ 3-dose series) 2011 HPV/Cotest (30-65) 2022 INFLUENZA VACCINE (#1) 2024 10/01/2021 COVID-19 Vaccine (3 - 2023-2 5 season) 2024 10/22/2021, 10/01/2021 CERVICAL CANCER SCREENING 07/07/2025 PAP SMEAR 07/07/2025 07/07/2022, 02/24/2021 PAP SMEAR 07/07/2025 07/07/2022, 02/24/2021 HPV VACCINES Aged Out No longer eligi ble based on patient's age to complete this topic PNEUMOCOCCAL VACCINE 0-49 YEARS Aged Out No longer eligible b ased on patient's age to complete this topic Procedures Procedure Name Priority Date/Time Associated Diagnosis Comments CERV/VAG CYTO AGE BASED SCREEN PAP Routine 07/07/2022 3:12 PM CDT Screening for cervical cancer from Last 3 Months or Most Recently Relevant to Health Maintenance Results * (ABNORMAL) CERV/VAG CYTO AGE BASED SCREEN PAP (07/07/2022 3:12 PM CDT) COMMENT (PAP): [facility] [place] Comment: This order for age-based cervical cancer and STI screening follows ACOG guidelines(PB 168, 140, JNB432). See individual assays for performing site location. CLINICAL INFORMATION [facility] [place] Comment:None given LAST MENSTRUAL PERIOD [facility] [place] Comment:NONE GIVEN PREV PAP: [facility] [place] Comment:NONE GIVEN PREV BX: [facility] [place] Comment:NONE GIVEN SOURCE [facility] [place] Comment:Endocervix ADEQUACY: [facility] [place] Comment: Satisfactory for evaluation. Endocervical/transformation zone component present. Age and/or menstrual status not provided GENERAL CATEGORIZATION: (A) [facility] [place] Comment:EPITHELIAL CELL ABNO RMALITY PAP INTERP (A) [facility] [place] Comment: Atypical Squamous Cells of Undetermined Significance (ASC-US) COMMENT (PAP TEST) [facility] [place] Comment: This Pap test has been evaluated with computer assisted technology. Suggest clinical correlation and follow-up as clinically appropriate MANAGER TRANSPORT: [facility] [place] Comment: BKA, CT(ASCP) CT screening location: [place] [address] [place] [address] PATHOLOGIST [facility] Comment: Erasmo Dodson M.D., Board Certified in Anatomic Pathology and Cytopathology. (electronic signature) EXPLANATORY NOTE [employer] [facility] [place] Comment: EXPLANATORY NOTE: The Pap is a screening test for cervical cancer. It is not a diagnostic test and is subject to false negative and false positive results. It is most reliable when a satisfactory sample, regularly obtained, is submitted with relevant clinical findings and history, and when the Pap result is evaluated along with historic and current clinical information. HPV E6/E7 Not Detected Not Detected [facility] [place] Comment: Methodology: Rn Transitional Care-Mediated Amplification This assay detects E6/E7 viral messenger RNA (mRNA) from 14 high-risk HPV types (16,18,31,33,35,39,45,51,52,56,58,59,66,68). Cervical sources are required for HPV testing. If a vaginal source from a patient who has had a total hysterectomy with removal of cervix was submitted, please contact the testing laboratory for alternative testing options. For additional information, please refer to http://education.All At Home/faq/DDO327s9 (This link if provided for information/ educational purposes only.) Test Performed at: [employer] [facility] [address] [place] [address] Heriberto Islas D.O., MPH SL Genital SWAB OF ENDOCERVIX / Unknown 07/07/2022 3:12 PM CDT 07/08/2022 12:10 AM CDT us Alexei Huitron MD PATHOLOGY/CYTOLOGY ORDERABLES Fi nal Result [facility] [phone] [facility] [address] [place] [address] from Last 3 Months or Most Recently Relevant to Health Maintenance Insurance [employer] CHOICE
--- OUTSIDE RECORDS SUMMARY | 2025-01-02 08:07 | XMS_ITS ---
Author Organization [facility] Address [facility] [address] Care Team Providers Care Bolt Loader Name Role Phone Aydin Lieberman Unavailable [phone] Medications Medication SIG (Take, Route, Fr equency, Duration) Notes Start Date End Date Status Sertraline HCl 25 MG 1.5 tablets Oral On ce a day for 30 days 06/07/2023 Active Social History Sex Assigned At : Social History Observation Description Sex Assigned At Female Encounters Encounter Location Date Provider Diagnosis [facility] [employer] [address] [address] 10/24/2024 Aydin Lieberman Obsessive-compulsive disorder, unspecified F42.9 Assessments Encounter Date Diagnosis (ICD Code) Assessment Notes Treatment Notes Treatment Clinical Notes Section Notes 10/24/2024 Obsessive-compul sive disorder, unspecified (ICD-10 - F42.9) Plan Of Treatment Medication Medication Name Sig Start Date Stop Date Notes Sertraline HCl 25 MG 1.5 tablets Oral On ce a day for 30 days 06/07/2023 Progress Notes * BABATUNDE KEEN KDOB: 2 (34 yo F)Acc No.[id number]:10/24/2024 Patient: KEN KHANILY Veronica :1990 A ge:34 Y S ex:Female Address:[address] [place] [address], [address] * Refills Refill Sertraline HCl Tablet, 25 MG, Oral, 45 Tablet, 1.5 tablets, Once a day, 30 days, Refills=0 Subjective: * Chief Complaints: * * Medical History: * Surgical History: * Hospitalization/Major Diagno stic Procedure: * Medications: Objective: * Vitals: * Physical Examination: Assessment: * Assessment: 1. O bsessive-compulsive disorder, unspecified - F42.9 Plan: * Treatment: * Procedure Codes: * true * Date: Generated for Wes zhao/Karolina/Cathryn on: 0 01/02/2025 08:07 AM CDT
[2025-01-02 13:16] LABS: Alanine Aminotransferase 17 U/L (6-35); Albumin Level 4.3 g/dL (3.5-5.1); Alkaline Phosphatase 71 U/L (38-126); Anion Gap 9 mmol/L (4-12); Aspartate Amino Transferase 36 U/L (14-36); Bilirubin,Total 0.6 mg/dL (0.2-1.3); Blood Urea Nitrogen 15 mg/dL (7-17); Calcium 9.1 mg/dL (8.4-10.2); Carbon Dioxide 27 mmol/L (22-30); Chloride 104 mmol/L (98-107); Cholesterol 192 mg/dL (0-200); Estimated Glomerular Filt Rate > 60; Glucose 96 mg/dL (65-110); HDL Direct 55 mg/dL; Potassium 4.8 mmol/L (3.4-5.0); Sodium 140 mmol/L (137-145); Triglycerides 112 mg/dL (<150)
[2025-01-02 13:28] LABS: LDL Cholesterol Direct 97 mg/dL
[2025-01-02 13:49] LABS: Cortisol Random 5.93 ug/dL
[2025-01-02 14:30] LABS: Hemoglobin A1C 5.4 % (<5.7)
== END 2025-01-02 08:02 | disposition home or self-care (01) ==
PROVIDERS: PCP Family Medicine; Visit Provider Student in an Organized Health Care Education/Training Program
DX: E66.9 Obesity, unspecified (principal); Z83.49 Family history of other endocrine, nutritional and metabolic diseases; Z13.220 Encounter for screening for lipoid disorders; Z13.29 Encounter for screening for other suspected endocrine disorder
CPT/HCPCS: 36415; 80053; 80061; 82533; 83036; 84443

== ENCOUNTER 2025-01-07 07:52 | Outpatient (CLI) | payer BC, SELFPAY ==
--- OUTSIDE RECORDS SUMMARY | 2025-01-07 07:56 | XMS_ITS | Clinical Summary ---
Author Organization [employer] [address] [place] [address] Phone Care Team Providers Care Experimental Mechanic Name Role Phone Unavailable Primary Care Provider [...] on file Legal Sex Female 2:32 PM DIRECTOR STARS Gender Identity Not on file Sexual Orientation [...] 3 - 19+ 3-dose series) 2011 HPV/Cotest (21-29) 2013 HPV/Cotest (30-65) 2022 INFLUENZA VACCINE (#1) 2024 [...] PAP (07/07/2022 3:12 PM CDT) COMMENT (PAP): [facility] [place] Comment: This order for age-based cervical cancer and STI screening follows ACOG guidelines(PB 168, 140, QCE342). See individual assays for performing site location. CLINICAL INFORMATION [facility] [place] Comment:None given LAST MENSTRUAL PERIOD [facility] [place] Comment:NONE GIVEN PREV PAP: [facility] [place] Comment:NONE GIVEN PREV BX: [facility] [place] Comment:NONE GIVEN SOURCE [facility] [place] Comment:Endocervix ADEQUACY: [facility] [place] Comment: Satisfactory for evaluation. Endocervical/transformation zone component present. Age and/or menstrual status not provided GENERAL CATEGORIZATION: (A) [facility] [place] Comment:EPITHELIAL CELL ABNO RMALITY PAP INTERP (A) [facility] [place] Comment: Atypical Squamous Cells of Undetermined Significance (ASC-US) COMMENT (PAP TEST) [facility] Comment: This Pap test has been evaluated with computer assisted technology. Suggest clinical correlation and follow-up as clinically appropriate RECREATION SUPERVISOR: Oral [place] Comment: BKA, CT(ASCP) CT screening location: [place] [address] [place] [address] PATHOLOGIST [facility] [place] Comment: Erasmo Dodson M.D., Board Certified in Anatomic Pathology and Cytopathology. (electronic signature) EXPLANATORY NOTE [employer] [place] Comment: EXPLANATORY NOTE: The Pap is a [...] information. HPV E6/E7 Not Detected Not Detected [employer] [place] Comment: Methodology: Putter In-Mediated Amplification This assay detects E6/E7 viral messenger RNA (mRNA) from 14 high-risk HPV types (16,18,31,33,35,39,45,51,52,56,58,59,66,68). Cervical sources are required for HPV testing. If a vaginal source from a patient who has had a total hysterectomy with removal of cervix was submitted, please contact the testing laboratory for alternative testing options. For additional information, please refer to http://education.Docitt/faq/JQZ883x0 (This link if provided for information/ educational purposes only.) Test Performed at: [employer] [address] [place] [address] Heriberto Islas D.O., MPH SL Genital SWAB OF ENDOCERVIX / Unknown 07/07/2022 3:12 PM CDT 07/08/2022 12:10 AM CDT us Alexei Huitron MD PATHOLOGY/CYTOLOGY ORDERABLES Fi nal Result [facility] [phone] [facility] [address] [place] [phone] from Last 3 Months or Most Recently Relevant to Health Maintenance Insurance [employer] CHOICE
--- OUTSIDE RECORDS SUMMARY | 2025-01-07 07:56 | XMS_ITS ---
Author Organization [facility] [employer] [facility] Address [facility] [address] [facility] [address] [place] [address] Care Team Providers Care Mc Kay Machine Operator Name Role Phone Aydin Lieberman Unavailable [phone] Anastacia Archer Unavailable [phone] Social History Sex Assigned At : Social History Observation Description Sex Assigned At Female Encounters Encounter Location Date Provider Diagnosis [facility] [place] [address] [facility] [address] [facility] [address] [place] [address] 07/26/2024 Anastacia Eddy Plan Of Treatment No Information Progress Notes * BABATUNDE KEEN KDOB: 2 (34 yo F)Acc No.[id number]:07/26/2024 Patient: BABATUNDE KHAN Provider: Cynthia EDDY LCSW :1990 A ge:34 Y S ex:Female Date:07/26/2024 Address:[address] [facility] Data: * Chief Complaints: * Assessment: Plan: * Treatment: * Procedure Codes: N STHR NO SHOW THERAPY * Billing Information: * Visit Code: * Procedure Codes: NSTHR NO SHOW THERAPY. * Electronic signature of Ellen Eddy LCSW on 01/07/2025 at 07:56 AM CDT Sign off status: Pending Signatures: No Ad Hoc Signature Added * Provider: Cynthia EDDY LCSW Date: 1 Generated for Printi ng/Faxing/eTransmitting on: 0 01/07/2025 07:56 AM CDT
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
--- OUTSIDE RECORDS SUMMARY | 2025-01-07 07:56 | XMS_ITS ---
Author Organization [facility] Address [facility] [address] [facility] [address] [place] [address] Care Team Providers Care Power Washer Name Role Phone Aydin Lieberman Unavailable [phone] Anastacia Archer Unavailable [phone] Social History Sex Assigned At : Social History Observation Description Sex Assigned At Female Encounters Encounter Location Date Provider Diagnosis [facility] [address] [place] [address] [facility] [address] [facility] [address] [place] [address] 08/24/2024 Anastacia Eddy Plan Of Treatment No Information Progress Notes * BABATUNDE KEEN KDOB: [birth year] (34 yo F)Acc No.[id number]:08/24/2024 Patient: BABATUNDE KHAN Provider: Cynthia EDDY LCSW :1990 A ge:34 Y S ex:Female Date:08/24/2024 Address:[address] [facility] Data: * Chief Complaints: * Assessment: Plan: * Treatment: * Procedure Codes: N STHR NO SHOW THERAPY * Billing Information: * Visit Code: * Procedure Codes: NSTHR NO SHOW THERAPY. * Electronic signature of Ellen Eddy LCSW on 01/07/2025 at 07:55 AM CDT Sign off status: Pending Signatures: No Ad Hoc Signature Added * Provider: Cynthia EDDY LCSW Date: 1 10/24/2023 Generated for Printi ng/Faxing/eTransmitting on: 0 01/07/2025 07:55 AM CDT
[2025-01-07 13:07] LABS: Free T4 Free Thyroxine 1.02 ng/dL (0.78-2.19)
[2025-01-09 08:44] LABS: Thyroid Peroxidase Antibodies 51 IU/mL (<9)
== END 2025-01-07 07:53 | disposition home or self-care (01) ==
LOC: ANHGOSHLAB 07:53
PROVIDERS: PCP Family Medicine; Visit Provider Family Medicine
DX: R94.6 Abnormal results of thyroid function studies (principal)
CPT/HCPCS: 36415; 84439; 84443; 86376